=== PATIENT | female | born 1985 | race Two or more races ===

== ENCOUNTER 2020-03-03 22:24 | Emergency (ER) | payer OTHER, SELFPAY ==
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
[2020-03-03 22:39] VITALS: BP 127/77; BP 140/80; PULSE 100; PULSE 93; RESP 18; TEMP 37.3; O2SAT 95; O2SAT 97; BMI 33.4
[2020-03-03 22:44] VITALS: BP 124/79; PULSE 89; RESP 18; TEMP 37.3; O2SAT 98
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
[2020-03-04] VITALS: BP 118/66; PULSE 87; RESP 18; TEMP 37; O2SAT 97
[2020-03-04] MEDS: Ibuprofen 600 MG TABLET PO (00:04)
== END 2020-03-04 00:05 | disposition home or self-care (01) ==
PROVIDERS: Emergency Provider Internal Medicine
DX: S19.9XXA Unspecified injury of neck, initial encounter (principal); M54.2 Cervicalgia; M54.5 Low back pain; V43.52XA Car driver injured in collision with other type car in traffic accident, initial encounter; Y93.9 Activity, unspecified; Y92.410 Unspecified street and highway as the place of occurrence of the external cause; Y99.9 Unspecified external cause status
CPT/HCPCS: 72125; 99284

== ENCOUNTER 2020-08-09 06:58 | Emergency (ER) | payer OTHER, SELFPAY ==
--- NOTE | ~2020-08-09 | XR_ITS ---
EXAMINATION: XR CHEST CLINICAL INFORMATION: Shortness of breath and cough. Rule out pneumonia. COMPARISON: Previous x-ray March 2011 TECHNIQUE: 2 views of the chest were obtained. FINDINGS: The cardiac and mediastinal contours are normal. There is atelectasis or small infiltrate at the left lung base. The lungs are otherwise clear. There is no pleural effusion or pneumothorax. Bony structures are unremarkable XR/XR chest 2V IMPRESSION: Atelectasis or small infiltrate at the left lung base.
[2020-08-09 07:11] VITALS: BP 127/69; PULSE 91; RESP 24; TEMP 36.5; O2SAT 96; BMI 31.2
[2020-08-09] MEDS: Magnesium Sulfate/H2O 2 GM/50 ML PIGGYBACK IV (07:44)
[2020-08-09] MEDS: methylPREDNISolone Sod Succ 125 MG/2 ML VIAL IVPUSH (07:45)
[2020-08-09 07:55] LABS: MANUAL DIFF FLAG NO
[2020-08-09 07:58] LABS: Basophils Absolute Auto 0.1 X10*3/uL (0.0-0.2); Basophils Percent Auto 0.3 % (0-2); Eosinophils Absolute Auto 0.3 X10*3/uL (0.0-0.4); Eosinophils Percent Auto 1.6 % (0-4); Hematocrit 38.9 % (37-47); Imm Gran Abs Auto 0.06 X10*3/uL (0.00-0.03); Imm Gran Pct Auto 0.4 % (0.0-0.4); Lymphocytes Absolute Auto 2.8 X10*3/uL (1.2-4.9); Lymphocytes Percent Auto 17.9 % (20-40); Mean Corpuscular HGB Conc 33.4 g/dl (31.0-35.0); Mean Corpuscular Hemoglobin 31.2 pg (27.0-33.0); Mean Corpuscular Volume 93.3 fL (80-98); Mean Platelet Volume 10.1 fL (9.4-12.3); Monocytes Absolute Auto 0.6 X10*3/uL (0.1-1.2); Monocytes Percent Auto 3.9 % (2-11); Neutrophils Absolute Auto 12.1 X10*3/uL (2.0-8.3); Neutrophils Percent Auto 75.9 % (45-73); Platelet Count 293 X10*3/uL (160-400); Red Blood Count 4.17 X10*6/uL (4.20-5.50); Red Cell Distribution Width 13.7 % (11.0-16.0); White Blood Count 15.9 X10*3/uL (4.8-10.8)
[2020-08-09 08:11] LABS: COVID-19 Test Negative (Negative); IDNOW Serial# 9DD0AD1C
[2020-08-09 08:19] LABS: Alanine Aminotransferase 14 U/L (0-31); Alkaline Phosphatase 92 U/L (39-117); Anion Gap 14 (12-20); Aspartate Amino Transferase 14 U/L (5-31); Bilirubin Total 0.6 mg/dL (0.0-1.0); Blood Urea Nitrogen 8 mg/dL (9-16); Calcium 8.7 mg/dL (8.4-10.2); Carbon Dioxide 23 mmol/L (22-29); Chloride 107 mmol/L (96-108); Creatinine Clr Calc Pharmacy 106.3; Estimated Glomerular Filt Rate > 60; Glucose Random 112 mg/dL (60-115); Potassium 3.3 mmol/L (3.3-5.1); Sodium 141 mmol/L (135-145); Total Protein 6.9 g/dL (6.5-8.0)
[2020-08-09] MEDS: Albuterol Sulfate (0.083%) 2.5 MG/3 ML VIAL.NEB 5 MG INHALE ×2 (08:41→12:15)
[2020-08-09 08:44] VITALS: PULSE 86; O2SAT 96
[2020-08-09 09:17] VITALS: BP 115/65; PULSE 113; RESP 18; O2SAT 96
--- NOTE | 2020-08-09 11:30 | ED.SOB ---
HPI - SOB/Dyspnea General Chief Complaint: Dyspnea Stated Complaint: sob Time Seen by Provider: 08/09/20 07:21 Source: patient Mode of arrival: ambulatory Limitations: no limitations History of Present Illness HPI Narrative: 34-year-old female who presents emergency department for evaluation of shortness of breath. The patient states she has a history of asthma and has been having difficulty with her asthma over the past 2 months. She states that over the past 24 hours for shortness of breath is gotten worse. She states that she has used her inhaler every 1-2 hours without any relief of her symptoms. She states that approximately 2 weeks prior she did complete a course of steroids with only minimal improvement of her symptoms. She states that she has a cough which is mainly nonproductive. She has had a subjective fever and chills. She states that she is having tightness in the center of her chest which is intermittent, moderate in intensity, worse with coughing and worse with breathing. Patient states that her shortness of breath got worse therefore she called an ambulance and was transported to the emergency department for evaluation. Related Data Previous Rx's Medication Instructions Recorded ibuprofen 600 mg PO Q6H PRN #20 tab 03/03/20 acetaminophen [Acetaminophen Extra 1,000 mg PO QID PRN #30 tab 08/09/20 Strength] albuterol sulfate 2.5 mg INHALATION Q4H PRN #90 ml 08/09/20 azithromycin [Zithromax Z-Ap] See Rx Instructions .ROUTE 08/09/20 .COMPLEX #6 tab cefuroxime axetil 500 mg PO Q12H 7 Days #14 tab 08/09/20 prednisone 60 mg PO DAILY 5 Days #15 tab 08/09/20 Allergies Allergy/AdvReac Type Severity Reaction Status Date / Time No Known Allergies Allergy Verified 03/03/20 22:38 Review of Systems Review of Systems: Yes all other systems are reviewed and are negative [facility] Past Medical History Medical History (Updated 08/09/20 @ 11:33 by Leonardo Claros MD) Asthma Social History Social History Alcohol intake: never Advance Directives: No Advance Directives Information Provided: No Physical Exam Vital Signs: Vital Signs: Last Vital Signs Temp 97.7 F 08/09/20 07:11 Pulse 91 08/09/20 12:15 Resp 18 08/09/20 09:17 BP 115/65 08/09/20 09:17 Pulse Ox 96 08/09/20 09:17 Oxygen Flow Rate 2 08/09/20 07:11 Body Mass Index 31.2 Const: General: cooperative Orientation/consciousness: oriented to person and oriented to place Limitations: no limitations HENMT: Head: Yes normal to inspection, Yes normocephalic and Yes atraumatic Ears: external ears normal General nose exam: Normal external nose present Face and sinus: Yes normal facial exam Mouth: Normal oral and palatal mucosa present Throat: Yes posterior oropharynx normal Eyes: Periorbital: periorbital findings normal Eyelids: Yes eyelids normal Conjunctivae: conjunctivae normal Sclerae: sclerae normal Corneas: corneas normal Pupils: Equal, round and reactive pupils present Direct Ophthalmoscopy: normal light reflex Neck: Neck: Yes full ROM, Yes no lymphadenopathy, Yes no meningeal signs, Yes trachea midline and Yes supple Chest: Chest palpation & inspection: normal inspection of the chest and normal palpation of entire chest wall Resp: Effort & Inspection: normal respiratory effort and able to speak in complete sentences Auscultation: wheezes expiratory wheezes, inspiratory wheezes and throughout Cardio: Rate: regular rate Rhythm: regular rhythm Heart sounds: S1 normal heart sound present, S2 normal heart sound present and no murmurs GI: Inspection: Yes normal to inspection Palpation (GI): Soft to palpation, nontender, no guarding, not rigid and No hepatosplenomegaly present : General: Yes no CVA tenderness Back/Spine/Pelvis: Back: no CVA tenderness Cervical Spine: normal cervical lordosis Thoracic/Lumbar Spine: thoracic and lumbar spine normal to inspection Skin: Lesions: no lesions Rashes: no rashes Wounds: no wounds Neuro: General: oriented to person, oriented to place and no meningeal signs Cranial nerves: Yes CN's II-XII intact bilaterally and Yes Equal, round and reactive pupils present Cognition (Neuro): normal cognition Motor exam (neuro): 5/5 motor strength present throughout Extrem: General: Yes normal to inspection and Yes full ROM Psych: Appearance: well kempt Mental Status: mental status grossly normal Speech and movement: Normal speech and movement present Affect: normal affect Attitude: cooperative Thought process: Normal thought process present Thought content: Normal thought content present Course Course Course Narrative: 34-year-old female who presents emergency department for evaluation of shortness of breath x1 day. Patient does have a history of asthma and has had several exacerbations over the last month with a course of prednisone 1 week prior. Patient's physical examination did reveal diffuse wheezing. [place] [address]. COVID-19 was negative. Chest x-ray revealed possible left lower lobe infiltrate Patient was treated with albuterol nebulizer x2, Solu-Medrol 125 mg IV, magnesium 2 g IV, and oral antibiotics (Zithromax and cefuroxime). Patient did feel better and was discharged home. She was started on Zithromax Z-Ap and cefuroxime 500 mg twice a day for 7 days. She was given a prescription for prednisone 60 mg once a day for 5 days. She also given a prescription for albuterol nebulizer solution. The patient was given verbal and printed instructions prior to discharge. The patient was advised to follow-up with their PCP in 2 days and to return to the emergency department if their symptoms get worse or if they develop any new symptoms that are concerning to them MDM - SOB/Dyspnea Lab Data Result diagrams: 08/09/20 07:39 08/09/20 07:39 Labs: Lab Results 08/09/20 08/09/20 08/09/20 Range/Units 07:39 07:39 07:39 WBC 15.9 H (4.8-10.8) X10*3/uL RBC 4.17 L (4.20-5.50) X10*6/uL Hgb 13.0 (12.0-16.0) g/dl Hct 38.9 (37-47) % MCV 93.3 (80-98) fL MCH 31.2 (27.0-33.0) pg MCHC 33.4 (31.0-35.0) g/dl RDW 13.7 (11.0-16.0) % Plt Count 293 (160-400) X10*3/uL MPV 10.1 (9.4-12.3) fL Immature Gran % (Auto) 0.4 (0.0-0.4) % Neut % (Auto) 75.9 H (45-73) % Lymph % (Auto) 17.9 L (20-40) % [place] % (Auto) 3.9 (2-11) % Eos % (Auto) 1.6 (0-4) % Baso % (Auto) 0.3 (0-2) % Lymph # (Auto) 2.8 (1.2-4.9) X10*3/uL [place] # (Auto) 0.6 (0.1-1.2) X10*3/uL Eos # (Auto) 0.3 (0.0-0.4) X10*3/uL Baso # (Auto) 0.1 (0.0-0.2) X10*3/uL Abs Immat Gran (auto) 0.06 H (0.00-0.03) X10*3/uL Absolute Neuts (auto) 12.1 H (2.0-8.3) X10*3/uL Absolute Nucleated RBC 0.000 (0.0-0.012) X10*3/uL Nucleated RBC % (auto) 0.0 (0.0-0.2) /100WBC Sodium 141 (135-145) mmol/L Potassium 3.3 (3.3-5.1) mmol/L Chloride 107 (96-108) mmol/L Carbon Dioxide 23 (22-29) mmol/L Anion Gap 14 (12-20) BUN 8 L (9-16) mg/dL Creatinine 0.65 (0.5-1.4) mg/dL Estim Creat Clear Calc 106.3 Estimated GFR > 60 Random Glucose 112 (60-115) mg/dL Calcium 8.7 (8.4-10.2) mg/dL Total Bilirubin 0.6 (0.0-1.0) mg/dL AST 14 (5-31) U/L ALT 14 (0-31) U/L Alkaline Phosphatase 92 (39-117) U/L Total Protein 6.9 (6.5-8.0) g/dL Albumin 4.0 (3.5-5.0) g/dL COVID-19 ([facility]) Negative (Negative) COVID-19 Clin Com See Note Discharge Plan Discharge Clinical Impression: Asthma with exacerbation Qualifiers: Asthma severity: moderate Asthma persistence: persistent Qualified Code(s): J45.41 - Moderate persistent asthma with (acute) exacerbation Community acquired pneumonia Qualifiers: Laterality: left Lung location: lower lobe of lung Qualified Code(s): J18.9 - Pneumonia, unspecified organism Patient Disposition: Home, Self-Care Instructions: Community Acquired Pneumonia (ED) Additional Instructions: YOUR CHEST X-RAY IS CONCERNING FOR POSSIBLE PNEUMONIA IN THE LEFT LOWER LUNG. YOUR SYMPTOMS ARE ALSO CONCERNING FOR AN ASTHMA EXACERBATION. TAKE PREDNISONE 20 MG PILLS, 3 PILLS ONCE A DAY FOR 5 DAYS. TAKE ZITHROMAX Z-AP PRESCRIBED. YOU RECEIVED A DOSE TODAY IN THE EMERGENCY DEPARTMENT TAKE YOUR 1ST DOSE (DAY 1) TOMORROW MORNING. TAKE CEFUROXIME 500 MG PILLS, 1 PILL 3 TIMES A DAY FOR 7 DAYS. USE THE ALBUTEROL NEBULIZER SOLUTION EVERY 4 HOURS NEEDED FOR SHORTNESS OF BREATH. CONTINUE TO USE YOUR ALBUTEROL INHALER. FOLLOW-UP WITH YOUR DOCTOR IN 2 DAYS. PLEASE RETURN TO THE EMERGENCY DEPARTMENT IF YOUR SYMPTOMS GET WORSE OR IF YOU DEVELOP ANY SYMPTOMS THAT ARE CONCERNING TO YOU. Prescriptions: New azithromycin [Zithromax Z-Ap] 250 mg tablet See Rx Instructions .ROUTE .COMPLEX Qty: 6 RF: 0 prednisone 20 mg tablet 60 mg PO DAILY 5 Days Qty: 15 RF: 0 cefuroxime axetil 500 mg tablet 500 mg PO Q12H 7 Days Qty: 14 RF: 0 albuterol sulfate 2.5 mg /3 mL (0.083 %) solution for nebulization 2.5 mg inhalation Q4H PRN (Reason: shortness of breath or wheezing) Qty: 90 RF: 0 acetaminophen [Acetaminophen Extra Strength] 500 mg tablet 1,000 mg PO QID PRN (Reason: fever or pain) Qty: 30 RF: 0 No Action ibuprofen 600 mg tablet 600 mg PO Q6H PRN (Reason: pain) Qty: 20 RF: 0 Interventions: ED Discharge Assessment Last Done: 08/09/20 14:06 Discharge Date/Time: 08/09/20 14:07
[2020-08-09] MEDS: Azithromycin 500 MG TABLET PO (11:35)
[2020-08-09 12:15] VITALS: PULSE 91; O2SAT 94
== END 2020-08-09 14:07 | disposition home or self-care (01) ==
PROVIDERS: Emergency Provider Emergency Medicine Emergency Medical Services
DX: J45.41 Moderate persistent asthma with (acute) exacerbation (principal); J18.9 Pneumonia, unspecified organism; Z20.822 Contact with and (suspected) exposure to COVID-19
CPT/HCPCS: 36415; 71046; 80053; 85025; 87635; 94640; 96365; 96366; 96375; 99283; 99284; J2930; J3475

== ENCOUNTER 2020-09-28 21:33 | Emergency (ER) | payer OTHER, SELFPAY ==
--- NOTE | ~2020-09-28 | XR_ITS ---
EXAMINATION: XR CHEST CLINICAL INFORMATION: Cough COMPARISON: 08/09/2020 TECHNIQUE: Frontal view of the chest was obtained. FINDINGS: No acute finding. No infiltrate. No effusion. The cardiac silhouette is within normal limits. The hilar structures do not appear pathologically enlarged. There is no effusion. XR/XR chest 1V IMPRESSION: No acute finding.
[2020-09-28 21:44] VITALS: BP 126/88; BP 135/66; PULSE 100; RESP 18; TEMP 37; O2SAT 97; O2SAT 98; BMI 31.1
--- NOTE | 2020-09-28 21:56 | ECG_ITS ---
Test Reason : DYSPNEA Blood Pressure : / mmHG Vent. Rate : 117 BPM Atrial Rate : 117 BPM P-R Int : 154 ms QRS Dur : 088 ms QT Int : 318 ms P-R-T Axes : 077 029 034 degrees QTc Int : 443 ms Sinus tachycardia Otherwise normal ECG No previous ECGs available Referred By: Dee Ayala Electronically Signed By:MARIANNE PALAFOX MD
--- NOTE | 2020-09-28 22:01 | ED_ITS ---
HPI - General Adult General Chief complaint: Dyspnea Stated complaint: Cough Time Seen by Provider: 09/28/20 21:39 Source: patient Mode of arrival: ambulatory History of Present Illness HPI narrative: 35-year-old female with a past medical history of asthma presenting to the ED complaining of persistent/worsening SOB and productive cough of clear phlegm x2 months. Admits to associated chest tightness. States was recently seen and treated in our ED for similar sx, finished course of antibiotics, prednisone, and inhaler without relief. Denies fever, chills, LE edema, calf pain, cigarette smoking, history of blood clots, oral OCPs, CP Patient is not vaccinated for COVID-19, reports has her 1st vaccination appointment scheduled tomorrow Onset (ago): week(s) Related Data Previous Rx's Medication Instructions Recorded ibuprofen 600 mg tablet 600 mg PO Q6H PRN #20 tab 03/03/20 acetaminophen 500 mg tablet 1,000 mg PO QID PRN #30 tab 08/09/20 (Acetaminophen Extra Strength) albuterol sulfate 2.5 mg INHALATION Q4H PRN #90 ml 08/09/20 azithromycin 250 mg tablet See Rx Instructions .ROUTE 08/09/20 (Zithromax Z-Ap) .COMPLEX #6 tab cefuroxime axetil 500 mg tablet 500 mg PO Q12H 7 Days #14 tab 08/09/20 prednisone 20 mg tablet 60 mg PO DAILY 5 Days #15 tab 08/09/20 albuterol sulfate 2.5 mg/0.5 mL 5 mg INHALATION Q4H PRN #30 ea 09/28/20 solution for nebulization albuterol sulfate 90 mcg/actuation 2 puff INHALATION Q4-6H PRN #6.7 g 09/28/20 aerosol inhaler benzonatate 100 mg capsule 100 mg PO TID PRN #14 cap 09/28/20 (Tessalon Perles) fluticasone propionate 50 2 spray INTRANASAL DAILY #16 g 09/28/20 mcg/actuation nasal spray,suspension (Flonase Allergy Relief) prednisone 20 mg tablet 40 mg PO DAILY 5 Days #10 tab 09/28/20 Allergies Allergy/AdvReac Type Severity Reaction Status Date / Time No Known Allergies Allergy Verified 03/03/20 22:38 Review of Systems Review of Systems: Constitutional: No Fever, No Chills, No Fatigue, No Malaise ENT/Mouth: No Ear Pain, No Nasal Congestion, No Hoarseness, No sore throat Eyes: No Redness, No Foreign Body, No Discharge, No Vision Changes Cardiovascular: +chest tightness, +SOB, No Dyspnea on Exertion, No Edema, No Palpitations Respiratory: + Cough, + Sputum, + Wheezing Gastrointestinal: No Nausea, No Vomiting, No Diarrhea, No Abdominal pain Musculoskeletal: No joint pain, No Myalgias, No Joint Swelling Skin: No Skin Lesions, No rash Neuro: No Weakness, No Headache Yes all other systems are reviewed and are negative [facility] Past Medical History Attestation statement: The following information was validated with the patient. Medical History (Updated 09/28/20 @ 23:37 by ALEYDA Junior) Asthma Social History Social History Alcohol intake: never Advance Directives: No Advance Directives Information Provided: Yes Patient : No Physical Exam Vital Signs: Vital Signs: Last Vital Signs Temp 98.2 F 09/28/20 22:56 Pulse 111 H 09/28/20 22:56 Resp 22 H 09/28/20 22:56 BP 127/79 09/28/20 22:56 Pulse Ox 97 09/28/20 22:56 Body Mass Index 31.1 Const: General: cooperative, healthy appearing, no acute distress, alert and awake Orientation/consciousness: patient oriented x3 Limitations: no limitations HENMT: Head: Yes normal to inspection Ears: hearing grossly normal bilaterally General nose exam: Normal external nose present Face and sinus: Yes normal facial exam Eyes: General: appearance normal, both eyes and all related structures EOM: EOMs intact bilaterally Neck: Neck: Yes normal visual inspection Resp: Effort & Inspection: normal respiratory effort Auscultation: wheezes expiratory wheezes and throughout Cardio: Rate: regular rate Heart sounds: S1 normal heart sound present and S2 normal heart sound present GI: Inspection: Yes normal to inspection Skin: Rashes: no rashes Wounds: no wounds Neuro: General: patient oriented x3 Gait exam (Neuro): Normal gait present Extrem: General: Yes normal to inspection, Yes no pedal edema and Yes no calf tenderness Course Course Course Narrative: XR chest 1V IMPRESSION: No acute finding. -2334--mild leukocytosis of 12.1, labs otherwise unremarkable, COVID- 19/influenza/RSV negative >> on re-evaluation patient reports symptomatic improvement/resolution after remedies given in the ED. Lungs are CTA. Reports has follow-up with her PCP tomorrow. States she does not currently have a nebulizer machine at home h owever can borrow her sisters and will ask for 1 tomorrow from PCP. Will supply patient without Albuterol inhaler in the ED and Rx prednisone. Worrisome signs and symptoms and strict return precautions discussed, she verbalized understanding feel safe for discharge home Medical Decision Making MDM Narrative Medical decision making narrative: 35-year-old female with a past medical history of asthma presenting to the ED complaining of persistent/worsening SOB and productive cough of clear phlegm x2 months. Admits to associated chest tightness. On exam initially tachycardic, likely from coughing during exam, diffuse expiratory wheeze, no pedal edema or calf tenderness. Nontoxic appearing. Concern for asthma exacerbation vs pneumonia vs viral syndrome/COVID-19. Unlikely PE/ACS due to duration of symptoms Patient was seen in our ED on 08/09 diagnosed with possible left lower lobe infiltrate/asthma exacerbation discharged on prednisone, Z-Ap, and cefuroxime. Plan: EKG, labs, CXR, COVID-19 testing, IV Solu-Medrol, IV magnesium, DuoNeb Lab Data Result diagrams: 09/28/20 22:21 09/28/20 22:21 Labs: Lab Results 09/28/20 09/28/20 09/28/20 Range/Units 22:21 22:21 22:21 WBC 12.1 H (4.8-10.8) X10*3/uL RBC 4.35 (4.20-5.50) X10*6/uL Hgb 13.8 (12.0-16.0) g/dl Hct 40.8 (37-47) % MCV 93.8 (80-98) fL MCH 31.7 (27.0-33.0) pg MCHC 33.8 (31.0-35.0) g/dl RDW 13.6 (11.0-16.0) % Plt Count 267 (160-400) X10*3/uL MPV 10.4 (9.4-12.3) fL Immature Gran % (Auto) 0.3 (0.0-0.4) % Neut % (Auto) 50.0 (45-73) % Lymph % (Auto) 32.5 (20-40) % [place] % (Auto) 7.6 (2-11) % Eos % (Auto) 8.9 H (0-4) % Baso % (Auto) 0.7 (0-2) % Lymph # (Auto) 3.9 (1.2-4.9) X10*3/uL [place] # (Auto) 0.9 (0.1-1.2) X10*3/uL Eos # (Auto) 1.1 H (0.0-0.4) X10*3/uL Baso # (Auto) 0.1 (0.0-0.2) X10*3/uL Abs Immat Gran (auto) 0.04 H (0.00-0.03) X10*3/uL Absolute Neuts (auto) 6.0 (2.0-8.3) X10*3/uL Absolute Nucleated RBC 0.000 (0.0-0.012) X10*3/uL Nucleated RBC % (auto) 0.0 (0.0-0.2) /100WBC Sodium 142 (135-145) mmol/L Potassium 3.8 (3.3-5.1) mmol/L Chloride 109 H (96-108) mmol/L Carbon Dioxide 24 (22-29) mmol/L Anion Gap 13 (12-20) BUN 8 L (9-16) mg/dL Creatinine 0.74 (0.5-1.4) mg/dL Estim Creat Clear Calc 96.3 Estimated GFR > 60 Random Glucose 88 (60-115) mg/dL Calcium 9.0 (8.4-10.2) mg/dL Magnesium 1.9 (1.6-2.6) mg/dL Total Bilirubin 0.3 (0.0-1.0) mg/dL Direct Bilirubin < 0.2 (0.0-0.5) mg/dL AST 12 (5-31) U/L ALT 13 (0-31) U/L Alkaline Phosphatase 89 (39-117) U/L Total Protein 7.3 (6.5-8.0) g/dL Albumin 4.2 (3.5-5.0) g/dL Coronavirus (PCR) NEGATIVE (Negative) Influenza Type A (PCR) NEGATIVE (Negative) Influenza Type B (PCR) NEGATIVE (Negative) RSV RNA Qual (PCR) NEGATIVE (Negative) Discharge Plan Discharge Clinical Impression: Asthma with exacerbation Patient Disposition: Home, Self-Care Instructions: Asthma (ED) Additional Instructions: Your blood work was reassuring today in the ED Your x-ray was unremarkable You tested negative for COVID-19, the flu, and RSV Use albuterol inhaler and nebulizer machine at home, it is very important that he follow up with her primary care doctor Aisha Fernandez for cough, take as needed Flonase is a nasal decongestion spray In addition prednisone as a steroid, take as prescribed If her symptoms persist or worsen, if constant worsening shortness of breath, chest pain, fever please return to the ED Prescriptions: New albuterol sulfate 90 mcg/actuation HFA aerosol inhaler 2 puff inhalation Q4-6H PRN (Reason: shortness of breath or wheezing) Qty: 6.7 RF: 0 prednisone 20 mg tablet 40 mg PO DAILY 5 Days Qty: 10 RF: 0 benzonatate [Kenzieon Jim] 100 mg capsule 100 mg PO TID PRN (Reason: cough) Qty: 14 RF: 0 fluticasone propionate [Flonase Allergy Relief] 50 mcg/actuation spray,suspension 2 spray intranasal DAILY Qty: 16 RF: 0 albuterol sulfate 2.5 mg/0.5 mL solution for nebulization 5 mg inhalation Q4H PRN (Reason: shortness of breath or wheezing) Qty: 30 RF: 0 No Action azithromycin [Zithromax Z-Ap] 250 mg tablet See Rx Instructions .ROUTE .COMPLEX Qty: 6 RF: 0 prednisone 20 mg tablet 60 mg PO DAILY 5 Days Qty: 15 RF: 0 cefuroxime axetil 500 mg tablet 500 mg PO Q12H 7 Days Qty: 14 RF: 0 albuterol sulfate 2.5 mg /3 mL (0.083 %) solution for nebulization 2.5 mg inhalation Q4H PRN (Reason: shortness of breath or wheezing) Qty: 90 RF: 0 acetaminophen [Acetaminophen Extra Strength] 500 mg tablet 1,000 mg PO QID PRN (Reason: fever or pain) Qty: 30 RF: 0 ibuprofen 600 mg tablet 600 mg PO Q6H PRN (Reason: pain) Qty: 20 RF: 0 Referrals: Ryne Guzman DO [Primary Care Provider] - 1 day (As scheduled)
[2020-09-28] MEDS: methylPREDNISolone Sod Succ 125 MG/2 ML VIAL IVPUSH (22:27)
[2020-09-28] MEDS: Magnesium Sulfate/H2O 2 GM/50 ML PIGGYBACK IV (22:28)
[2020-09-28] MEDS: Albuterol/Iprat 2.5/0.5MG 3 ML AMPUL.NEB INHALE (22:30)
[2020-09-28 22:31] VITALS: PULSE 103; O2SAT 97
[2020-09-28 22:32] LABS: Basophils Absolute Auto 0.1 X10*3/uL (0.0-0.2); Basophils Percent Auto 0.7 % (0-2); Eosinophils Absolute Auto 1.1 X10*3/uL (0.0-0.4); Eosinophils Percent Auto 8.9 % (0-4); Hematocrit 40.8 % (37-47); Hemoglobin 13.8 g/dl (12.0-16.0); Imm Gran Abs Auto 0.04 X10*3/uL (0.00-0.03); Imm Gran Pct Auto 0.3 % (0.0-0.4); Lymphocytes Absolute Auto 3.9 X10*3/uL (1.2-4.9); Lymphocytes Percent Auto 32.5 % (20-40); MANUAL DIFF FLAG NO; Mean Corpuscular HGB Conc 33.8 g/dl (31.0-35.0); Mean Corpuscular Hemoglobin 31.7 pg (27.0-33.0); Mean Corpuscular Volume 93.8 fL (80-98); Mean Platelet Volume 10.4 fL (9.4-12.3); Monocytes Absolute Auto 0.9 X10*3/uL (0.1-1.2); Monocytes Percent Auto 7.6 % (2-11); Platelet Count 267 X10*3/uL (160-400); Red Blood Count 4.35 X10*6/uL (4.20-5.50); Red Cell Distribution Width 13.6 % (11.0-16.0); White Blood Count 12.1 X10*3/uL (4.8-10.8)
[2020-09-28 22:55] LABS: Alanine Aminotransferase 13 U/L (0-31); Albumin Level 4.2 g/dL (3.5-5.0); Alkaline Phosphatase 89 U/L (39-117); Anion Gap 13 (12-20); Aspartate Amino Transferase 12 U/L (5-31); Bilirubin Direct < 0.2 mg/dL (0.0-0.5); Bilirubin Total 0.3 mg/dL (0.0-1.0); Blood Urea Nitrogen 8 mg/dL (9-16); Carbon Dioxide 24 mmol/L (22-29); Chloride 109 mmol/L (96-108); Creatinine Clr Calc Pharmacy 96.3; Estimated Glomerular Filt Rate > 60; Glucose Random 88 mg/dL (60-115); Magnesium 1.9 mg/dL (1.6-2.6); Potassium 3.8 mmol/L (3.3-5.1); Sodium 142 mmol/L (135-145); Total Protein 7.3 g/dL (6.5-8.0)
[2020-09-28 22:56] VITALS: BP 127/79; PULSE 111; RESP 22; TEMP 36.8; O2SAT 97
[2020-09-28 23:05] LABS: Influenza A PCR NEGATIVE (Negative); Influenza B PCR NEGATIVE (Negative); Resp Syncy Virus RNA Qual PCR NEGATIVE (Negative); SARS COV2 PCR INHOUSE NEGATIVE (Negative)
[2020-09-28 23:42] VITALS: BP 119/80; PULSE 92; RESP 18; TEMP 36.8; O2SAT 98
[2020-09-28] MEDS: Albuterol Sulfate 90 MCG 8 GM INHALER 4 PUFF INHALE (23:51)
== END 2020-09-29 00:02 | disposition home or self-care (01) ==
PROVIDERS: Physician Assistant; Emergency Provider Emergency Medicine; PCP Internal Medicine
DX: J45.901 Unspecified asthma with (acute) exacerbation (principal); R06.00 Dyspnea, unspecified; R05 Cough; Z20.822 Contact with and (suspected) exposure to COVID-19; Z79.899 Other long term (current) drug therapy
CPT/HCPCS: 0241U; 36415; 71045; 80048; 80076; 83735; 85025; 93005; 94640; 96365; 96366; 96375; 99284; J2930; J3475

== ENCOUNTER 2021-02-25 22:12 | Emergency (ER) | payer OTHER, SELFPAY ==
--- NOTE | ~2021-02-25 | XR_ITS ---
EXAMINATION: XR CHEST CLINICAL INFORMATION: Shortness of breath COMPARISON: 09/28/2020 TECHNIQUE: Frontal view of the chest was obtained. FINDINGS: No significant abnormality is noted involving the heart, lungs, mediastinum, bony thorax or soft tissues. XR/XR chest 1V IMPRESSION: Unremarkable examination.
[2021-02-25 22:21] VITALS: BP 113/83; BP 124/86; PULSE 72; PULSE 96; RESP 22; TEMP 36.9; O2SAT 94; BMI 30.2
--- NOTE | 2021-02-25 22:22 | ECG_ITS ---
Test Reason : chest pain Blood Pressure : / mmHG Vent. Rate : 096 BPM Atrial Rate : 096 BPM P-R Int : 150 ms QRS Dur : 094 ms QT Int : 348 ms P-R-T Axes : 075 028 038 degrees QTc Int : 439 ms Normal sinus rhythm Normal ECG When compared with ECG of 28-SEP-2020 22:09, No significant change was found Referred By: Leann Ching Electronically Signed By:MARIANNE PALAFOX MD
[2021-02-25] MEDS: Albuterol Sulfate 90 MCG 8 GM INHALER 4 PUFF INHALE (22:35)
[2021-02-25 22:38] VITALS: PULSE 95; O2SAT 98
--- NOTE | 2021-02-25 22:59 | ED.ASTHMA ---
HPI - Asthma General Chief Complaint: Asthma Stated Complaint: ASTHMA ATTACK PER EMS Time Seen by Provider: 02/25/21 22:19 Source: patient Mode of arrival: EMS History of Present Illness HPI Narrative: 35-year-old female with history of asthma is brought in by EMS for worsening shortness of breath over the past 3 days an associated cough. She states her at home treatments have not been helping and endorses that she has had 1 COVID-19 vaccine and is scheduled for the 2nd. Patient denies any fever, chills, nausea, vomiting, diarrhea, but reports some mild back pain. Related Data Previous Rx's Medication Instructions Recorded ibuprofen 600 mg tablet 600 mg PO Q6H PRN #20 tab 03/03/20 acetaminophen 500 mg tablet 1,000 mg PO QID PRN #30 tab 08/09/20 (Acetaminophen Extra Strength) albuterol sulfate 2.5 mg (3 mL) INHALATION Q4H PRN 08/09/20 #90 ml azithromycin 250 mg tablet See Rx Instructions .ROUTE 08/09/20 (Zithromax Z-Ap) .COMPLEX #6 tab cefuroxime axetil 500 mg tablet 500 mg PO Q12H 7 Days #14 tab 08/09/20 prednisone 20 mg tablet 60 mg PO DAILY 5 Days #15 tab 08/09/20 albuterol sulfate 2.5 mg/0.5 mL 5 mg INHALATION Q4H PRN #30 ea 09/28/20 solution for nebulization albuterol sulfate 90 mcg/actuation 2 puff INHALATION Q4-6H PRN #6.7 g 09/28/20 aerosol inhaler benzonatate 100 mg capsule 100 mg PO TID PRN #14 cap 09/28/20 (Tessalon Jim) fluticasone propionate 50 2 spray INTRANASAL DAILY #16 g 09/28/20 mcg/actuation nasal spray,suspension (Flonase Allergy Relief) prednisone 20 mg tablet 40 mg PO DAILY 5 Days #10 tab 09/28/20 prednisone 20 mg tablet 40 mg PO DAILY 4 Days #8 tab 02/26/21 Allergies Allergy/AdvReac Type Severity Reaction Status Date / Time No Known Allergies Allergy Verified 03/03/20 22:38 Review of Systems Review of Systems: Pertinent positives and negatives as stated in HPI 10 point review of systems is otherwise negative. PMFSH Past Medical History Source: nursing notes reviewed Medical History Asthma Social History Social History Alcohol intake: unknown Patient Tobacco Use Status: Never used Tobacco Use of substances other than those prescribed or required for medical reasons: Unknown Advance Directives: No Advance Directives Information Provided: No Physical Exam Vital Signs: Vital Signs: Last Vital Signs Temp 97.6 F 02/26/21 00:00 Pulse 95 02/26/21 00:08 Resp 20 02/26/21 00:00 BP 113/66 02/26/21 00:00 Pulse Ox 98 02/26/21 00:00 BMI result Body Mass Index 30.2 VITAL SIGNS: Reviewed. GENERAL: Well developed, well nourished, in no acute distress. HEAD: Normocephalic/atraumatic EYES: PERRLA, EOMI EARS: Ext canals without abnormality, TMs non-bulging and non-erythematous NOSE: Nares patent bilateral OROPHARYNX: no oral lesions noted, posterior pharynx clear and non-erythematous without noted tonsillar enlargement/erythema/exudates NECK: Supple, no adenopathy LUNGS: Good inspiratory effort, with scattered/bilateral expiratory wheezing noted, mild tachypnea, no obvious increased work of breathing. SpO2<94> CARDIOVASCULAR: Regular rate and rhythm without noted murmurs ABDOMEN: Soft, non-tender, non-distended with bowel sounds. NEUROLOGIC: Alert and oriented x 4. Strength and sensation to light touch were grossly intact x 4. Course Course Course Narrative: 35-year-old female with history and clinical presentation most consistent with mild asthma exacerbation, will evaluate for COVID-19 infection and otherwise treat for asthma exacerbation. Review of all investigations consistent with mild asthma exacerbation and after patient received treatment on re-evaluation she states she feels much better and on auscultation there is been almost complete resolution of wheeze and patient is resting comfortably. She is otherwise discharged home in stable condition. MDM - Asthma Lab Data Labs: Lab Results 02/25/21 Range/Units 23:07 COVID-19 ([place]) Negative (Negative) COVID-19 Clin Com See Note ECG Data Attestation: I personally reviewed and interpreted this ECG as follows: Prior ECG tracings: available for review Interpretation: Normal sinus rhythm, HR-96, no STEMI, ID/QRS/QTC are within normal limits. Discharge Plan Discharge Clinical Impression: Asthma with acute exacerbation Patient Disposition: Home, Self-Care Instructions: Asthma (ED) Additional Instructions: 1. You have been provided with a short course of steroids. 2. Recommend bedside cool mist humidifier. 3. Increase use of your albuterol inhaler. 4. Follow-up with primary care provider Saturday morning for re-evaluation further outpatient management. Return to the ER for worsening symptoms. Prescriptions: New prednisone 20 mg tablet 40 mg PO DAILY 4 Days Qty: 8 RF: 0 No Action azithromycin [Zithromax Z-Ap] 250 mg tablet See Rx Instructions .ROUTE .COMPLEX Qty: 6 RF: 0 prednisone 20 mg tablet 60 mg PO DAILY 5 Days Qty: 15 RF: 0 cefuroxime axetil 500 mg tablet 500 mg PO Q12H 7 Days Qty: 14 RF: 0 albuterol sulfate 2.5 mg /3 mL (0.083 %) solution for nebulization 2.5 mg inhalation Q4H PRN (Reason: shortness of breath or wheezing) Qty: 90 RF: 0 acetaminophen [Acetaminophen Extra Strength] 500 mg tablet 1,000 mg PO QID PRN (Reason: fever or pain) Qty: 30 RF: 0 ibuprofen 600 mg tablet 600 mg PO Q6H PRN (Reason: pain) Qty: 20 RF: 0 albuterol sulfate 90 mcg/actuation HFA aerosol inhaler 2 puff inhalation Q4-6H PRN (Reason: shortness of breath or wheezing) Qty: 6.7 RF: 0 prednisone 20 mg tablet 40 mg PO DAILY 5 Days Qty: 10 RF: 0 benzonatate [Tessalon Perles] 100 mg capsule 100 mg PO TID PRN (Reason: cough) Qty: 14 RF: 0 fluticasone propionate [Flonase Allergy Relief] 50 mcg/actuation spray,suspension 2 spray intranasal DAILY Qty: 16 RF: 0 albuterol sulfate 2.5 mg/0.5 mL solution for nebulization 5 mg inhalation Q4H PRN (Reason: shortness of breath or wheezing) Qty: 30 RF: 0 Interventions: ED Discharge Assessment Last Done: 02/26/21 01:23 Print Language: Turkish
[2021-02-25] MEDS: predniSONE 10 MG TABLET 50 MG PO (23:01)
[2021-02-25 23:19] VITALS: BP 128/77; PULSE 90; RESP 18; TEMP 36.7; O2SAT 95
[2021-02-25 23:25] LABS: COVID-19 Test Negative (Negative)
[2021-02-26] VITALS: BP 113/66; PULSE 91; RESP 20; TEMP 36.4; O2SAT 98
[2021-02-26] MEDS: Albuterol Sulfate (0.083%) 2.5 MG/3 ML VIAL.NEB 10 MG INHALE (00:07)
[2021-02-26 00:08] VITALS: PULSE 95; O2SAT 95
== END 2021-02-26 02:10 | disposition home or self-care (01) ==
PROVIDERS: Emergency Provider Student in an Organized Health Care Education/Training Program
DX: J45.901 Unspecified asthma with (acute) exacerbation (principal); Z20.822 Contact with and (suspected) exposure to COVID-19
CPT/HCPCS: 71045; 87635; 93005; 94640; 99284; 99285

== ENCOUNTER 2021-03-06 18:55 | Emergency (ER) | payer OTHER, SELFPAY ==
--- NOTE | ~2021-03-06 | XR_ITS ---
EXAMINATION: CHEST 2 VIEWS CLINICAL INFORMATION: cough, wheezing . COMPARISON: 02/25/2021. TECHNIQUE: PA and lateral views of the chest obtained. FINDINGS: The lungs are well expanded. No focal infiltrate, effusion, edema, or pneumothorax. Cardiac and mediastinal silhouettes are within normal limits for technique. No acute bony abnormality seen XR/XR chest 2V IMPRESSION: No evidence of acute disease
--- NOTE | 2021-03-06 19:17 | ED_ITS ---
HPI - SOB/Dyspnea General Stated Complaint: SOB Time Seen by Provider: 03/06/21 19:01 Source: patient and EMS Mode of arrival: EMS Limitations: no limitations History of Present Illness HPI Narrative: 35-year-old female with a longstanding history of asthma which is poorly controlled here with reports of cough and wheezing over the last few days patient tells me that for the last 2 months her asthma has been uncontrolled and she has been on several rounds of prednisone with continued symptoms. She last completed a course of 40 mg of prednisone daily on March 01. She denies any associated fevers, chills, chest pain, leg swelling or pain. The cough is not productive. She does report some shortness of breath with the coughing. Today she used her albuterol MDI, as well as albuterol nebulizer continued symptoms. EMS gave her an additional 5 mg of albuterol with continued symptoms. Related Data Previous Rx's Medication Instructions Recorded ibuprofen 600 mg tablet 600 mg PO Q6H PRN #20 tab 03/03/20 acetaminophen 500 mg tablet 1,000 mg PO QID PRN #30 tab 08/09/20 (Acetaminophen Extra Strength) albuterol sulfate 2.5 mg (3 mL) INHALATION Q4H PRN 08/09/20 #90 ml azithromycin 250 mg tablet See Rx Instructions .ROUTE 08/09/20 (Zithromax Z-Ap) .COMPLEX #6 tab cefuroxime axetil 500 mg tablet 500 mg PO Q12H 7 Days #14 tab 08/09/20 prednisone 20 mg tablet 60 mg PO DAILY 5 Days #15 tab 08/09/20 albuterol sulfate 2.5 mg/0.5 mL 5 mg INHALATION Q4H PRN #30 ea 09/28/20 solution for nebulization albuterol sulfate 90 mcg/actuation 2 puff INHALATION Q4-6H PRN #6.7 g 09/28/20 aerosol inhaler benzonatate 100 mg capsule 100 mg PO TID PRN #14 cap 09/28/20 (Tessalon Perles) fluticasone propionate 50 2 spray INTRANASAL DAILY #16 g 09/28/20 mcg/actuation nasal spray,suspension (Flonase Allergy Relief) prednisone 20 mg tablet 40 mg PO DAILY 5 Days #10 tab 09/28/20 prednisone 20 mg tablet 40 mg PO DAILY 4 Days #8 tab 02/26/21 codeine 10 mg-guaifenesin 100 mg/5 10 ml PO Q4-6H PRN #118 ml 03/06/21 mL oral liquid prednisone 20 mg tablet 60 mg PO DAILY 5 Days #15 tab 03/06/21 Allergies Allergy/AdvReac Type Severity Reaction Status Date / Time No Known Allergies Allergy Verified 03/03/20 22:38 Review of Systems Review of Systems: Yes all other systems are reviewed and are negative Constitutional: Constitutional: Reports no additional constitutional complaints, Denies body ache(s), Denies chills, Denies fever(s), Denies headache(s) and Denies weakness Eyes: Eyes: Reports no additional eye complaints and Denies change in vision ENT: Reports system reviewed and no additional complaints, except as documented, Denies dizziness, Denies headache(s), Denies nasal congestion, Denies nasal discharge and Denies neck pain Cardiovascular: Cardiovascular: Reports no additional cardiovascular complaints, Denies chest pain, Denies leg edema and Denies dyspnea Respiratory: Respiratory: Reports no additional respiratory complaints, Reports cough, Denies dyspnea and Reports wheezing Gastrointestinal: Gastrointestinal: Reports no additional gastrointestinal complaints, Denies abdominal pain, Denies diarrhea, Denies nausea and Denies vomiting Genitourinary: Genitourinary: Reports no additional female genitourinary comp laints and Denies urinary incontinence Musculoskeletal: Musculoskeletal: Reports no additional musculoskeletal complaints, Denies back pain, Denies arthralgias, Denies joint swelling, Denies neck pain, Denies numbness and Denies tingling Integumentary/Breasts: Skin/Breast: Reports system reviewed and no additional complaints, except as docu and Denies rash Neurologic: Reports system reviewed and no additional complaints, except as documented, Denies Abnormal speech present, Denies dizziness, Denies headache(s), Denies numbness, Denies tingling and Denies weakness Allergic/Immunologic: Allergic/Immunologic: Reports wheezing PMFSH Past Medical History Attestation statement: The following information was validated with the patient. Source: old records reviewed and nursing notes reviewed Medical History Asthma Social History Social History Alcohol intake: unknown Patient Tobacco Use Status: Never used Tobacco Advance Directives: No Advance Directives Information Provided: No Physical Exam Vital Signs: Vital Signs: Last Vital Signs Pulse 90 03/06/21 20:49 Resp 18 03/06/21 20:49 BP 108/75 03/06/21 20:49 Pulse Ox 98 03/06/21 20:49 Const: General: alert and in distress Orientation/consciousness: patient oriented x3 Limitations: no limitations HENMT: Head: Yes normal to inspection Ears: hearing grossly normal bilaterally and TM's normal bilaterally General nose exam: Normal external nose present Face and sinus: Yes normal facial exam Mouth: Normal oral and palatal mucosa present Throat: Yes posterior oropharynx normal, Yes tonsils normal and Yes uvula midline Eyes: General: appearance normal, both eyes and all related structures Pupils: Equal, round and reactive pupils present Neck: Neck: Yes normal visual inspection, Yes full ROM, Yes no lymphadenopathy and Yes no meningeal signs Chest: Chest palpation & inspection: normal inspection of the chest Resp: Other: Patient sitting upright Respiratory rate 28-30 Tachypneic, accessory muscle use, speaking short phrases Inspiratory and expiratory wheezing throughout Cardio: Rate: tachycardic Rhythm: regular rhythm Peripheral pulses: Peripheral pulses 2+ throughout GI: Inspection: Yes normal to inspection Palpation (GI): Soft to palpation and nontender Auscultation: normal bowel sounds Back/Spine/Pelvis: Thoracic/Lumbar Spine: thoracic and lumbar spine normal to inspection Skin: General skin exam: no rashes or lesions noted Neuro: General: patient oriented x3, no meningeal signs, no focal motor deficits and normal sensation to monofilament Cranial nerves: Yes Equal, round and reactive pupils present Cognition (Neuro): normal cognition Speech: No Abnormal speech present Gait exam (Neuro): Normal gait present Motor exam (neuro): 5/5 motor strength present throughout Extrem: General: Yes normal to inspection, Yes no pedal edema and Yes no calf tenderness Course Course Course Narrative: 35-year-old female here in respiratory distress with underlying history of asthma. Patient received 2 nebulizers prior to arrival with continued symptoms. Respiratory rate 30, heart rate 120, oxygen saturation 92-93%. Wheezing throughout. Will place P IV and give 125 mg of Solu-Medrol, magnesium 2 g, cough suppressan t, DuoNeb. Check chest x-ray and COVID screen 1950-post DuoNeb patient has a mild expiratory wheezing but overall much improved and is feeling better 2200-Patient feels much improved over all. RR 18, heart rate 90, oxygen saturation 98% RA. LS CTA. Ambulated to bathroom with no difficulty. Reviewed worrisome signs/symptoms with patient and when to return to ED. Comfortable with discharge home. MDM - SOB/Dyspnea MDM Narrative Medical decision making narrative: Poorly-controlled asthma with acute exacerbation Pneumonia Viral syndrome Medical Records Attestation: I reviewed the patient's medical records. Lab Data Attestation: I reviewed the patient's lab results. Result diagrams: 03/06/21 19:26 03/06/21 19:26 Labs: Lab Results 03/06/21 03/06/21 03/06/21 Range/Units 19:26 19: 19:26 WBC 11.1 H (4.8-10.8) X10*3/uL RBC 4.37 (4.20-5.50) X10*6/uL Hgb 13.9 (12.0-16.0) g/dl Hct 41.6 (37.0-47.0) % MCV 95.2 (80.0-98.0) fL MCH 31.8 (27.0-33.0) pg MCHC 33.4 (31.0-35.0) g/dl RDW 12.9 (11.0-16.0) % Plt Count 298 (160-400) X10*3/uL MPV 10.3 (9.4-12.3) fL Immature Gran % (Auto) 0.2 (0.0-0.4) % Neut % (Auto) 43.4 L (45-73) % Lymph % (Auto) 36.3 (20-40) % [place] % (Auto) 6.2 (2-11) % Eos % (Auto) 13.0 H (0-4) % Baso % (Auto) 0.9 (0-2) % Lymph # (Auto) 4.0 (1.2-4.9) X10*3/uL [place] # (Auto) 0.7 (0.1-1.2) X10*3/uL Eos # (Auto) 1.4 H (0.0-0.4) X10*3/uL Baso # (Auto) 0.1 (0.0-0.2) X10*3/uL Abs Immat Gran (auto) 0.02 (0.00-0.03) X10*3/uL Absolute Neuts (auto) 4.8 (2.0-8.3) x10*3/uL Absolute Nucleated RBC 0.000 (0.0-0.012) X10*3/uL Nucleated RBC % (auto) 0.0 (0.0-0.2) /100WBC Sodium 141 (135-145) mmol/L Potassium 4.0 (3.3-5.1) mmol/L Chloride 107 (96-108) mmol/L Carbon Dioxide 25 (22-29) mmol/L Anion Gap 13 (12-20) BUN 9 (9-16) mg/dL Creatinine 0.64 (0.5-1.4) mg/dL Estim Creat Clear Calc TNP Estimated GFR > 60 Random Glucose 97 (60-115) mg/dL Calcium 9.4 (8.4-10.2) mg/dL COVID-19 ([facility]) Negative (Negative) COVID-19 Clin Com See Note Imaging Data Chest x-ray: Attestation: I personally reviewed and interpreted this imaging study as follows: Radiologist's impression: EXAMINATION: CHEST 2 VIEWS CLINICAL INFORMATION: cough, wheezing . COMPARISON: 02/25/2021. TECHNIQUE: PA and lateral views of the chest obtained.? FINDINGS: The lungs are well expanded. No focal infiltrate, effusion, edema, or pneumothorax. Cardiac and mediastinal silhouettes are within normal limits for technique. No acute bony abnormality seen XR/XR chest 2V IMPRESSION: No evidence of acute disease ? Discharge Plan Discharge Clinical Impression: Asthma exacerbation Patient Disposition: Home, Self-Care Instructions: Asthma (ED) Additional Instructions: Started prednisone tomorrow Increase fluids, rest Use albuterol as needed Follow-up with your PCP as your asthma is not well controlled COVID test and x-ray are normal Prescriptions: New prednisone 20 mg tablet 60 mg PO DAILY 5 Days Qty: 15 RF: 0 codeine-guaifenesin 10-100 mg/5 mL liquid 10 ml PO Q4-6H PRN (Reason: cough) Qty: 118 RF: 0 No Action azithromycin [Zithromax Z-Ap] 250 mg tablet See Rx Instructions .ROUTE .COMPLEX Qty: 6 RF: 0 prednisone 20 mg tablet 60 mg PO DAILY 5 Days Qty: 15 RF: 0 cefuroxime axetil 500 mg tablet 500 mg PO Q12H 7 Days Qty: 14 RF: 0 albuterol sulfate 2.5 mg /3 mL (0.083 %) solution for nebulization 2.5 mg inhalation Q4H PRN (Reason: shortness of breath or wheezing) Qty: 90 RF: 0 acetaminophen [Acetaminophen Extra Strength] 500 mg tablet 1,000 mg PO QID PRN (Reason: fever or pain) Qty: 30 RF: 0 ibuprofen 600 mg tablet 600 mg PO Q6H PRN (Reason: pain) Qty: 20 RF: 0 albuterol sulfate 90 mcg/actuation HFA aerosol inhaler 2 puff inhalation Q4-6H PRN (Reason: shortness of breath or wheezing) Qty: 6.7 RF: 0 prednisone 20 mg tablet 40 mg PO DAILY 5 Days Qty: 10 RF: 0 benzonatate [Tessalon Perles] 100 mg capsule 100 mg PO TID PRN (Reason: cough) Qty: 14 RF: 0 fluticasone propionate [Flonase Allergy Relief] 50 mcg/actuation spray,suspension 2 spray intranasal DAILY Qty: 16 RF: 0 albuterol sulfate 2.5 mg/0.5 mL solution for nebulization 5 mg inhalation Q4H PRN (Reason: shortness of breath or wheezing) Qty: 30 RF: 0 prednisone 20 mg tablet 40 mg PO DAILY 4 Days Qty: 8 RF: 0 Referrals: Physician,Unknown J [Primary Care Provider] - 2 days Interventions: ED Discharge Assessment Last Done: 03/06/21 22:00 Discharge Date/Time: 03/06/21 22:01
[2021-03-06] MEDS: Albuterol/Iprat 2.5/0.5MG 3 ML AMPUL.NEB INHALE (19:25)
[2021-03-06 19:27] VITALS: PULSE 103; RESP 20; O2SAT 95
[2021-03-06 19:30] LABS: MANUAL DIFF FLAG NO
[2021-03-06 19:39] LABS: Basophils Absolute Auto 0.1 X10*3/uL (0.0-0.2); Basophils Percent Auto 0.9 % (0-2); Eosinophils Absolute Auto 1.4 X10*3/uL (0.0-0.4); Hematocrit 41.6 % (37.0-47.0); Hemoglobin 13.9 g/dl (12.0-16.0); Imm Gran Abs Auto 0.02 X10*3/uL (0.00-0.03); Imm Gran Pct Auto 0.2 % (0.0-0.4); Lymphocytes Percent Auto 36.3 % (20-40); Mean Corpuscular HGB Conc 33.4 g/dl (31.0-35.0); Mean Corpuscular Hemoglobin 31.8 pg (27.0-33.0); Mean Corpuscular Volume 95.2 fL (80.0-98.0); Mean Platelet Volume 10.3 fL (9.4-12.3); Monocytes Absolute Auto 0.7 X10*3/uL (0.1-1.2); Monocytes Percent Auto 6.2 % (2-11); Neutrophils Absolute Auto 4.8 x10*3/uL (2.0-8.3); Neutrophils Percent Auto 43.4 % (45-73); Platelet Count 298 X10*3/uL (160-400); Red Blood Count 4.37 X10*6/uL (4.20-5.50); Red Cell Distribution Width 12.9 % (11.0-16.0); White Blood Count 11.1 X10*3/uL (4.8-10.8)
[2021-03-06 19:45] LABS: Anion Gap 13 (12-20); Blood Urea Nitrogen 9 mg/dL (9-16); Calcium 9.4 mg/dL (8.4-10.2); Carbon Dioxide 25 mmol/L (22-29); Chloride 107 mmol/L (96-108); Estimated Glomerular Filt Rate > 60; Glucose Random 97 mg/dL (60-115); Sodium 141 mmol/L (135-145)
[2021-03-06 19:46] LABS: COVID-19 Test Negative (Negative); IDNOW Serial# 9DD0AD1C
[2021-03-06] MEDS: methylPREDNISolone Sod Succ 125 MG/2 ML VIAL IVPUSH (20:01)
[2021-03-06] MEDS: guaiFEN/Codeine SF 200/20/10ML 10 ML LIQUID PO (20:01)
[2021-03-06] MEDS: Magnesium Sulfate/H2O 2 GM/50 ML PIGGYBACK IV (20:01)
--- NOTE | 2021-03-06 20:05 | PC.NURSE ---
medicated per Mar.
[2021-03-06 20:49] VITALS: BP 108/75; PULSE 90; RESP 18; O2SAT 98
== END 2021-03-06 22:01 | disposition home or self-care (01) ==
PROVIDERS: Nurse Practitioner Family; Emergency Provider Emergency Medicine
DX: J45.901 Unspecified asthma with (acute) exacerbation (principal); Z20.822 Contact with and (suspected) exposure to COVID-19
CPT/HCPCS: 71046; 80048; 85025; 87635; 94640; 99282; 99284; J2930; J3475